=== PATIENT | female | born 1980 | race Caucasian/White ===

== ENCOUNTER → 2018-02-21 11:49 | Outpatient (CLI) | payer MEDICAID, SELFPAY ==
[2018-02-26 13:25] LABS: HPV Reflexed? NOT INDICATED
== END ==
PROVIDERS: Visit Provider Obstetrics & Gynecology
DX: Z12.4 Encounter for screening for malignant neoplasm of cervix (principal); Z12.72 Encounter for screening for malignant neoplasm of vagina
CPT/HCPCS: 88175; G0145

== ENCOUNTER 2018-12-26 09:28 | Observation (INO) | payer MEDICAID, SELFPAY ==
[2018-12-20 12:22] LABS: Hematocrit 42.8 % (37-47); Hemoglobin 14.6 g/dl (12.0-15.0); Mean Corp Hgb Conc 34.1 g/gl (32-36); Mean Corpuscular Hgb 32.1 pg (27.0-32.0); Mean Corpuscular Volume 94.1 fL (81-99); Mean Platelet Vol. 10.3 fl (6.2-12.0); Platelet Count 230 K/mm3 (150-450); RBC Distribution Width CV 12.8 % (11.6-14.6); Red Blood Count 4.55 M/mm3 (4.2-5.4); White Blood Count 10.4 K/mm3 (4.4-11.0)
[2018-12-20 12:24] LABS: Scan Indicated on CBC? Y/N NO
[2018-12-20 12:28] LABS: International Normalized Ratio 1.1; Prothrombin Time (Protime)PT. 13.5 SECONDS (11.7-14.9)
[2018-12-20 12:38] LABS: Internal QC Validated? YES +Cl - CLEAR BKGD; Pregnancy, Serum, hCG Quali. NEGATIVE Negative
[2018-12-20 12:53] LABS: Anion Gap 3 (5-15); BUN 8 mg/dL (7-18); BUN/Creat Ratio 10.8 RATIO (10-20); Calcium,Total 8.5 mg/dL (8.5-10.1); Chloride 109 mmol/L (98-107); Creatinine, Serum 0.74 mg/dL (0.55-1.02); EST Glomerular Filtration Rate 92 mL/min (>60); Est Glom Filt Rate - Afr Amer 111 mL/min (>60); Glucose 79 mg/dL (74-106); Potassium 3.8 mmol/L (3.5-5.1); Sodium Level 138 mmol/L (136-145)
[2018-12-26] VITALS (11 sets, daily range): BP systolic 71–94; BP diastolic 40–64; PULSE 40–62; RESP 16–20; TEMP 36–37.1; O2SAT 16–100; BMI 19.5
[2018-12-26 07:21] LABS: Internal QC Validated? YES +Cl - CLEAR BKGD; Pregnancy, Urine Negative Negative
--- NOTE | 2018-12-26 09:00 | HYST_PTH ---
PATIENT: GODFREY THAPA LOC: [facility] U#:[id number] AGE/SX: 38/F ROOM: [facility] [place] RE12/26/[address]: Dr. Terrance Cox MD : 1980 BED: 1 DIS: 12/27/2018 SPEC #: [id number] RECD: 12/26/18 13:03 STATUS: BRIAN RESuhas #: [id number] DAYANA: 12/26/18 09:[address]: Terrance Cox DEPT: SURGICAL PATHOLOGY RECD BY: Thai Glass ENTERED: 12/26/18 13:45 SP TYPE: HYSTERECT OTHR DR: Clarita Miramontes, IRISH Tissues: Uterus, NOS Procedures: Surgery Specimen Level V HEADER OPERATION: Lap assisted hysterectomy, bilateral oophorectomy PRE-OP DIAGNOSIS: Right ovarian cyst, pelvic pain TISSUE SUBMITTED: Uterus, cervix, bilateral ovaries MICROSCOPIC DIAGNOSIS Uterus, hysterectomy: Cervix - nabothian cysts, mild squamous metaplasia and mild chronic inflammation. Endometrium - late secretory endometrium. Myometrium - focal adenomyosis. Right ovary - follicular and hemorrhagic corpus luteal cysts. Fimbriated end of fallopian tube. Left ovary - follicular and hemorrhagic corpus luteal cysts. Portion of fimbrial end of fallopian tube. AM:laureano 12/27/18 MICROSCOPIC DESCRIPTION Slides are reviewed. GROSS DESCRIPTION Received in fixative is one container labeled with the patient's name and designated uterus. The specimen consists of a uterus with attached right and left ovaries and attached portions of right and left fallopian tube. The uterus with cervix measures 8 x 4.5 x 3 cm and weights 64.5 gm. The ectocervix is unremarkable. The cervical os is oval in contour. The endocervical canal measures 3 cm in length and is grossly unremarkable. The elongated endometrial cavity measures 4 cm in length and 2 cm in greatest diameter. The reddish-billings velvety endometrium measures up to 0.2 cm in thickness. The myometrium measures 1.5 cm in average thickness and is free of mass lesions. The right ovary is smooth and glistening and light billings in color and measures 4.2 x 2.5 x 1.5 cm. A small portion of what appears to be fallopian tube is adherent measuring 2 x 0.5 cm. The external surface of the ovary is inked ad the ovary is serially sectioned to reveal multiple cysts containing clear to bloody fluid that range in size from 0.5 to 1.2 cm in greatest dimension. The left ovary is similar in appearance and measures 3 x 3 x 2.6 cm. The external surface of the left ovary is inked in blue ink. Serial sections reveal multiple cysts ranging in size from 0.1 to 2 cm and containing clear to bloody fluid. Food Science Professor sections are submitted as follows: 1 - anterior cervix, 2 - posterior cervix, 3 & 4 - anterior uterine wall, 5 & 6 - posterior uterine wall, 7-9 - right ovary and possible fallopian tube, 10-12 - left ovary and possible adherent fallopian tube. / AM:laureano 12/26/18 TC:5 CPT: 25629
--- NOTE | 2018-12-26 09:38 | DCINST_ITS ---
Discharge Diet: No Restrictions Discharge Activity: Return to Normal Activity, May Not Drive, May not drive while taking narcotic pain medications., May Shower Return to work on:: 02/04/19 May shower in (days): 0 May resume sexual activity in: 6-8 weeks Call your doctor if your incision/area has: Continuous Slow Oozing, Sudden Increased Bleeding, Increased Pain/ Swelling, Increased Redness, Foul Smelling Discharge, Swelling at the incision site Call your doctor if you observe: Fever of 101 or Higher, Inability to urinate, Inability to have a bowel movement, Using more than one pad per hour, Shortness of breath, Chest pain, Calf discomfort, Uncontrolled pain Remove Dressing in (days):: 2 Cleanse incision/area with: Soap & Water Allergies/Adverse Reactions: Allergies hydrocodone [From Vicodin] Allergy (Verified 12/19/18 13:12) Itching latex Allergy (Verified 12/19/18 13:12) Rash Medications to take at Discharge Famotidine [Pepcid] 20 mg PO DAILY 12/19/18 Orphenadrine Citrate [Orphenadrine Citrate ER] 100 mg PO PRN PRN 12/19/18 Oxycodone HCl/Acetaminophen [Percocet 5-325 mg Tablet] 1 each PO PRN PRN 12/19/18 Ibuprofen 600 mg PO 4X/DAY #30 tab 12/26/18 Oxycodone [Oxyir] 5 - 10 mg PO Q4H PRN PRN 7 Days #30 tab 12/26/18 The following prescriptions were given: Oxycodone [Oxyir] 5 - 10 mg PO Q4H PRN PRN 7 Days #30 tab PRN Reason: Mod-Severe Pain (4-10/10) Ibuprofen 600 mg PO 4X/DAY #30 tab Primary Care Physician: Clarita Miramontes NP-C [Primary Care Provider] - Test Results: Test results from this visit will be discussed in further detail at your follow- up appointment, if applicable. Please Follow Up With: Terrance Cox MD When: one week Proposed Discharge Date: 12/27/18
--- NOTE | 2018-12-26 09:38 | PCM.OPRPT ---
Report of Operation Date of Procedure: 12/26/18 Pre-Operative Diagnosis: Chronic Pelvic Pain, Complex Right Ovarian Cyst, Pelvic Adhesions Post-Operative Diagnosis: Same Surgery/Procedure Performed:: Laparoscopic Assisted Vaginal Hysterectomy, Bilateral Oophorectomy, Lysis of Pelvic Adhesions Description of Surgical Findings:: Right ovary with hemorrhagic versus endometriotic cyst measuring about 6 cm with scarring of ovary to right pelvic sidewall. Left ovary, uterus, and cervix appeared normal. Both fallopian tubes surgically absent. Normal appearing liver and gallbladder. Stomach appeared normal. methods analyst data processing: Maik Altamirano Type of Anesthesia:: General Anesthesiologist: Yosef Koenig Special Medications: none Specimen's removed: Uterus, cervix, bilateral ovaries Drains: Booker Estimated Blood Loss (mL): 100c Fluids Replaced: 800cc LR Description of Procedure: Procedures reviewed with Elva prior to taking her to the OR. She was taken to the OR with IV running. She was given two grams of Cefotetan intravenously for surgical prophylaxis. General anesthesia was then induced without complication. She was then prepped and draped in the dorsal lithotomy position. A booker catheter was placed. A Zumi style uterine manipulator was then placed. Attention was then directed to the abdomen. A 5 mm vertical incision was made in the lower base of the umbilicus. The underlying subcutaneous tissue was then dissected down to the level of the fascia using blunt dissection with a Urmila clamp. The abdominal wall was then elevated and a Veress needle placed through the umbilical defect into the abdominal cavity. The abdomen was then inflated with CO2 gas to a pressure of 15 Torr. The Veress needle was removed and replaced with a 5mm laparoscopic trocar and sleeve. The trocar was removed and replaced with the laparoscope. A thorough survey of the abdomen and pelvis was performed with findings as mentioned above. Two lateral 5 mm laparoscopic ports were placed under direct visualization with the laparoscope. These were placed one on the right and one on the left about 3cm below the level of the umbilicus lateral to the inferior epigastric vessels. Hemostasis was excellent after port placement. Attention was first directed to the right pelvis. Using the Ligasure device the right ovarian pelvic adhesions were carefully dissected from the right pelvic sidewall. Once freed the right infundibulopelvic ligament was cauterized and cut. The paraovarian tissue was then dissected down to the level of the left uteroovarian ligament. The right round ligament was then cauterized and cut. The Broad ligament was then dissected close to the uterus to the level of the uterocervical junction. The anterior and posterior leaves of the right Broad ligament were then and the uterine artery on the right was cauterized and cut. Dissection of the paracervical tissue on the right was then dissected and cut close to the cervix to the level of the uterosacral ligament. Attention was then directed to the left side where the infundibulopelvic ligament was cauterized and cut. The Left Round ligament was then cauterized and cut. The Broad ligament dissected close to the uterus down to the level of the uterocervical junction. The anterior and posterior leaves of the Broad ligament were then , the left uterine artery was then cauterized and cut. A bladder flap was then created. The paracervical tissue was then dissected close to the cervix to the level of the left uterosacral ligament. Attention was then directed to the vagina. The uterine manipulator was removed and replaced with two single toothed tenaculum for traction. The cervicovaginal epithelium was then superficially injected with a dilute Pitressin solution. The Bovie cautery was then used to cut the vaginal epithelium circumfrentially. The vaginal mucosa was then pushed superiorly. The vesicovaginal peritoneum was then entered sharply. In a similar fashion the rectovaginal peritoneum was entered. A long weighted speculum was placed through the [id number] defect. Using Cathie clamps the uterosacral ligaments on each side were clamped, cut and suture ligated. The remaining paracervical tissue on each side was clamped, cut, and suture ligated. The uterus, cervix and bilateral adnexa were then removed. The vaginal mucosa was then closed with a series of interrupted and figure of eight sutures of 0-Vicryl suture. Attention was then directed to the abdomen which was reinflated with CO2 gas. The pelvis was then vigorously irrigated. Stefano was placed over the pelvic pedicles and vaginal cuff. With hemostasis assured the laparoscopic ports were removed. The skin incisions were closed with 4-0 Monocryl. Sponge, needle, and instrument counts were correct. She was reversed from anesthesia and taken to the recovery room in stable condition. Grafts/Implants Used: none - Complications none - Admit VTE Documentation VTE Present on Admission: No VTE Mechan Device Prophylaxis: SCD's VTE Pharm Prophylaxis ordered?: No
[2018-12-26] MEDS: Vasopressin 20 UNITS/ML Vial (10:20)
[2018-12-26] MEDS: Bupivacaine 0.25% 30 ML Vial (11:05)
[2018-12-26] MEDS: Ketorolac 30 MG/ML Syringe IV ×2 (11:58→18:00)
[2018-12-26] MEDS: Dextrose 5%-Lactated Ringers 1,000 ML 125 ML IV ×2 (13:52→21:35)
[2018-12-26] MEDS: oxyCODONE 5 MG Tablet PO ×2 (16:15→20:23)
[2018-12-26] MEDS: Acetaminophen 500 MG Tablet 1000 MG PO (16:15)
[2018-12-26] MEDS: Cefazolin 1 GM/50 ML BAG IV (16:35)
[2018-12-26] MEDS: Orphenadrine 100 MG Tablet PO (22:18)
[2018-12-27] VITALS: BP 91/51; PULSE 43; RESP 18; TEMP 37; O2SAT 97
[2018-12-27] MEDS: Ketorolac 30 MG/ML Syringe IV ×2 (00:57→05:11)
[2018-12-27] MEDS: oxyCODONE 5 MG Tablet PO ×3 (00:58→09:39)
[2018-12-27] MEDS: Cefazolin 1 GM/50 ML BAG IV (01:13)
--- NOTE | 2018-12-27 01:44 | PCM.DC.SUM ---
Discharge Date and Diagnosis Date of Admission: 12/26/18 Date of Discharge: 12/27/18 - Primary Discharge Diagnosis S/P LAVH, bilateral salpingectomy - Secondary Discharge Diagnosis Chronic Problems Pelvic pain (Chronic) s/p essure placement Hospital Course and Treatment Operations: - - LAVH, bilateral salpingectomy, lysis of adhesions Summary of Care Provided: The patient is a 38 year old F [admitted for scheduled surgery. This was performed without complication. Postoperative course was unremarkable. She was discharged home in stable condition on POD #1.] - Physical Exam Vital Signs Temp Pulse Resp BP Pulse Ox 98.6 F 43 L 18 91/51 L 97 12/27/18 00:00 12/27/18 00:00 12/27/18 00:00 12/27/18 00:00 12/27/18 00:00 Oxygen Flow Rate (L/min) 2 Oxygen Delivery Method Room Air Weight: 121 lb 4.068 oz Body Mass Index (BMI) 19.5 Intake and Output for Last 24 Hours 12/25/18 12/26/18 12/27/18 23:59 23:59 23:59 Intake Total 2695 / 2695 2350 / 2350 Output Total 740 / 740 1575 / 1575 Balance 1955 / 195 775 / 775 Laboratory Tests Past 24 Hrs 12/26/18 07:15 Urine Test Negative Discharge Diet: No Restrictions Discharge Activity: Return to Normal Activity, May Not Drive, May not drive while taking narcotic pain medications., May Shower Return to work on:: 02/04/19 May shower in (days): 0 May resume sexual activity in: 6-8 weeks Call your doctor if your incision/area has: Continuous Slow Oozing, Sudden Increased Bleeding, Increased Pain/ Swelling, Increased Redness, Foul Smelling Discharge, Swelling at the incision site Call your doctor if you observe: Fever of 101 or Higher, Inability to urinate, Inability to have a bowel movement, Using more than one pad per hour, Shortness of breath, Chest pain, Calf discomfort, Uncontrolled pain Remove Dressing in (days):: 2 Cleanse incision/area with: Soap & Water Home Medications: Medications to take at Discharge Famotidine [Pepcid] 20 mg PO DAILY 12/19/18 Orphenadrine Citrate [Orphenadrine Citrate ER] 100 mg PO BID PRN PRN MDD 200 12/19/18 Oxycodone HCl/Acetaminophen [Percocet 5-325 mg Tablet] 1 each PO Q6H PRN PRN 12/19/18 Ibuprofen 600 mg PO 4X/DAY #30 tab 12/26/18 Oxycodone [Oxyir] 5 - 10 mg PO Q4H PRN PRN 7 Days #30 tab 12/26/18 Estrogens, Conjugated [Premarin] 1.25 mg PO DAILY #30 tab 12/27/18 Following Prescrptions Were Given to Patient: Oxycodone [Oxyir] 5 - 10 mg PO Q4H PRN PRN 7 Days #30 tab PRN Reason: Mod-Severe Pain (-05/16) Estrogens, Conjugated [Premarin] 1.25 mg PO DAILY #30 tab Ibuprofen 600 mg PO 4X/DAY #30 tab Primary Care Physician: Clarita Miramontes NP-C [Primary Care Provider] - Please Follow Up With: Terrance Cox MD When: one week Disposition: Home Minutes spent on discharge:: 15 Patient Condition:: Good Medical Necessity - Tobacco Use Smoking Status: Current every day smoker Meaningful Use Info Meaningful Use Diagnoses (Choose all that apply): None applicable
[2018-12-27 03:10] VITALS: BP 84/47; PULSE 45; RESP 18; TEMP 36.8; O2SAT 96
[2018-12-27 05:50] LABS: Hematocrit 34.3 % (37-47); Hemoglobin 11.5 g/dl (12.0-15.0); Mean Corp Hgb Conc 33.5 g/gl (32-36); Mean Corpuscular Hgb 31.2 pg (27.0-32.0); Mean Platelet Vol. 11.6 fl (6.2-12.0); Platelet Count 145 K/mm3 (150-450); RBC Distribution Width CV 12.4 % (11.6-14.6); RBC Distribution Width SD 40.7 fl (35.1-43.9); Red Blood Count 3.69 M/mm3 (4.2-5.4); Scan Indicated on CBC? Y/N NO; White Blood Count 18.1 K/mm3 (4.4-11.0)
[2018-12-27 06:03] LABS: EST Glomerular Filtration Rate 84 mL/min (>60); Est Glom Filt Rate - Afr Amer 102 mL/min (>60); Estimated Creatinine Clearance 81.16 ml/min
--- NOTE | 2018-12-27 06:15 | PCM.PN.OB ---
Subjective: Some soreness but pain reasonably well controlled. Objective: Afeb VSS Hgb appropriate. Urine output adequate. - Physical Exam General: Alert, Oriented x3, Cooperative, No apparent distress Lungs: Clear to auscultation, Normal air movement Cardiovascular: Regular rate, Regular Rhythm Abdomen: Soft, Non Tender, Non-Distended, - - Incision dressings dry Extremities: No edema Skin: No rashes Neurological: Neuro grossly intact Psych/Mental Status: Normal Affect Comment: Scant vaginal spotting Vital Signs Temp Pulse Resp BP Pulse Ox 98.2 F 45 L 18 84/47 L 96 12/27/18 03:10 12/27/18 03:10 12/27/18 03:10 12/27/18 03:10 12/27/18 03:10 Oxygen Flow Rate (L/min) 2 Oxygen Delivery Method Room Air Weight: 121 lb 4.068 oz Body Mass Index (BMI) 19.5 Intake and Output for Last 24 Hours 12/25/18 12/26/18 12/27/18 23:59 23:59 23:59 Intake Total 2695 / 2695 3296 / 3296 Output Total 740 / 740 2175 / 2175 Balance 1954 / 1954 1121 / 1121 Laboratory Tests Past 24 Hrs 12/26/18 12/27/18 12/27/18 07:15 05:04 05:04 WBC 18.1 H RBC 3.69 L Hgb 11.5 L Hct 34.3 L MCV 93.0 MCH 31.2 MCHC 33.5 RDW 12.4 RDW Differential 40.7 Plt Count 145 L MPV 11.6 Creatinine 0.80 Estim Creat Clear Calc 81.16 Est GFR (MDRD) Af Amer 102 Est GFR (MDRD) Non-Af 84 Urine Test Negative Medical Necessity - Tobacco Use Smoking Status: Current every day smoker Assessment/Plan Doing well on PO day#1. Cleared for discharge home today. Home going instructions and warnings given. f/u next week in the office.
[2018-12-27 07:11] VITALS: O2SAT 96
[2018-12-27 09:30] VITALS: BP 86/48; PULSE 42; RESP 18; TEMP 36.7; O2SAT 99
[2018-12-27] MEDS: Famotidine 20 MG Tablet PO (09:31)
[2018-12-27] MEDS: Acetaminophen 500 MG Tablet 1000 MG PO (09:39)
[2018-12-27 09:55] VITALS: PULSE 42
[2018-12-27] MEDS: Estrogens,Conj. 1.25 MG Tablet PO (10:50)
[2018-12-27] MEDS: Ketorolac 10 MG Tablet PO (10:50)
== END 2018-12-27 10:55 | disposition home or self-care (01) ==
LOC: MS3 12:19
PROVIDERS: Admitting Provider Obstetrics & Gynecology; Family Provider Nurse Practitioner Family; PCP Nurse Practitioner Family; Referring Provider Obstetrics & Gynecology; Visit Provider Obstetrics & Gynecology
PROC: 0UT9FZZ Resection of Uterus, Via Natural or Artificial Opening With Percutaneous Endoscopic Assistance (ICD-10-PCS; CPT 58552; principal; 2018-12-26 08:40)
DX: N80.0 Endometriosis of uterus (principal); N83.12 Corpus luteum cyst of left ovary; N83.11 Corpus luteum cyst of right ovary; N88.8 Other specified noninflammatory disorders of cervix uteri; G89.29 Other chronic pain; F17.200 Nicotine dependence, unspecified, uncomplicated; E78.00 Pure hypercholesterolemia, unspecified; K21.9 Gastro-esophageal reflux disease without esophagitis; Z79.899 Other long term (current) drug therapy
CPT/HCPCS: 58552; 36415; 80048; 81025; 82565; 84703; 85027; 85610; 85730; 86850; 86900; 88307; 93005; 96361; 96365; 96366; 96375; 96376; 99218; 99406; J7120; G0378; G0379; J2405

== ENCOUNTER → 2019-01-03 13:13 | Outpatient (CLI) | payer MEDICAID, SELFPAY ==
[2018-12-26 07:22] VITALS: BMI 19.5
== END ==
PROVIDERS: Family Provider Nurse Practitioner Family; PCP Nurse Practitioner Family; Referring Provider Obstetrics & Gynecology; Visit Provider Obstetrics & Gynecology
DX: R30.0 Dysuria (principal)
CPT/HCPCS: 87086

== ENCOUNTER → 2021-03-30 | Outpatient (CLI) | payer MEDICARE, MEDICAID, SELFPAY | END | disposition home or self-care (01) | PROVIDERS: PCP Nurse Practitioner Family; Visit Provider Obstetrics & Gynecology | DX: N76.0 Acute vaginitis (principal); N76.1 Subacute and chronic vaginitis; Z11.3 Encounter for screening for infections with a predominantly sexual mode of transmission ==

== ENCOUNTER 2021-11-05 16:24 | Outpatient (CLI) | payer MEDICARE, MEDICAID, SELFPAY | END 2021-11-05 23:59 | disposition home or self-care (01) | PROVIDERS: PCP Nurse Practitioner Family; Visit Provider Obstetrics & Gynecology | DX: Z11.3 Encounter for screening for infections with a predominantly sexual mode of transmission (principal); N77.1 Vaginitis, vulvitis and vulvovaginitis in diseases classified elsewhere ==

== ENCOUNTER → 2022-02-21 | Outpatient (CLI) | payer MEDICARE, MEDICAID, SELFPAY | END | disposition home or self-care (01) | PROVIDERS: Visit Provider Obstetrics & Gynecology | DX: R30.0 Dysuria (principal); N76.1 Subacute and chronic vaginitis | CPT/HCPCS: 87086; 87088 ==

== ENCOUNTER → 2022-03-30 | Outpatient (CLI) | payer MEDICARE, MEDICAID, SELFPAY | END | disposition home or self-care (01) | PROVIDERS: Visit Provider Obstetrics & Gynecology | DX: N76.0 Acute vaginitis (principal) ==